=== PATIENT | male | born 1955 | race Caucasian/White ===

== ENCOUNTER 2016-07-22 18:03 | Emergency (ER) | payer MEDICARE ==
[~2016-07-22] VITALS: Ht 170.2 cm; Wt 88.0 kg
[~2016-07-22 18:03] MED LIST: CLON0.2T PO; METH10TA PO
[2016-07-22 18:04] VITALS: BP 168/100; PULSE 85; RESP 15; TEMP 97.7; O2SAT 95
--- NOTE | 2016-07-22 19:27 | PD ---
HPI Chief Complaint: Injury Time Seen by Provider: 19:23 Travel History International Travel<30 days: No Contact w/Intl Traveler<30days: No Traveled to known affect area: No History of Present Illness HPI 61-year-old white male [id number] presents to emergency department with complaints of right shoulder pain after a fall. He states that he was running and tripped and fell landing on his outstretched right hand which then folded under him onto his shoulder. He states that this occurred earlier today. He has had pain in the shoulder and around the scapula. He denies injury to his head. He has chronic back pain. He takes Dilaudid and a muscle relaxer. He denies any nausea vomiting. No double pain. No chest pain or shortness of breath. Pain is moderate. Worse with movement of the arm. Some relief with holding arm against his body. PFSH Past Medical History Narrative Medical Chronic back pain, hypertension Hypertension: Yes Neurologic: Yes Tetanus Vaccination: < 5 Years Past Surgical History Other Surgery: Yes (TNEDON/CORRECTIVE LEGS BILAT - CEREBAL PALSY) Social History Alcohol Use: No Tobacco Use: Yes Substance Use: No Allergies-Medications (Allergen,Severity, Reaction): Coded Allergies: No Known Allergies (Verified , 07/22/16) Reported Meds & Prescriptions Reported Meds & Active Scripts Active Review of Systems Except as stated in HPI: all other systems reviewed are Neg Physical Exam Narrative GENERAL: Well-developed, well-nourished in no apparent distress. Nontoxic appearing. HEAD: Normocephalic, atraumatic. EYES: Pupils equal round and reactive. Extraocular motions intact. No scleral icterus. No injection or drainage. ENT: Nose clear. Throat without erythema, tonsillar hypertrophy or exudate. Uvula midline. Airway patent. NECK: Trachea midline. Supple, nontender, moves head freely. No central bony tenderness or spasm. CARDIOVASCULAR: Regular rate and rhythm without murmurs, gallops, or rubs. RESPIRATORY: Clear to auscultation. Breath sounds equal bilaterally. No wheezes , rales, or rhonchi. GASTROINTESTINAL: Abdomen soft, non-tender, nondistended. No hepato-splenomegaly , or palpable masses. No guarding. EXTREMITIES: No clubbing, cyanosis, or edema. Patient complains of diffuse diffuse pain in the right shoulder as well as the right clavicle. There is no obvious deformity. The skin is intact. He has decreased range of motion due to pain. At times he is able to move his hand and arm readily but will not raise it. He has intact median/ulnar/radial nerves. Left upper extremity is unremarkable. The lower extremities are without localizing bony tenderness. Patient has track herrmann on his hands and forearms BACK: Nontender without deformity. No flank tenderness. NEUROLOGICAL: Awake, alert and oriented x 3 .Cranial nerves grossly intact. Motor and sensory grossly within normal limits. Normal speech. Data Data Last Documented VS Vital Signs Date Time Temp Pulse Resp B/P Pulse Ox O2 Delivery O2 Flow Rate FiO2 07/22/16 18:04 97.7 85 15 168/100 95 Orders Scapula (07/22/16 18:56) Shoulder, Complete (>2vws) (07/22/16 18:56) MDM Medical Decision Making Medical Screen Exam Complete: Yes Emergency Medical Condition: Yes Medical Record Reviewed: Yes Interpretation(s) Right scapula: Negative for fracture. Right shoulder: Negative for fracture. Positive degenerative changes of the acromioclavicular joint. Differential Diagnosis MDM: High Differential diagnoses: Fracture, sprain, strain, dislocation, contusion, neurovascular injury Narrative Course x-RAYS ARE NEGATIVE FOR BONY INJURY. pATIENT'S GIVEN A SLING, tORADOL 60 AND nORFLEX 60 G im. This is fall, right shoulder sprain/contusion Diagnosis Primary Impression: Fall Qualified Code: W19.XXXA - Fall, initial encounter Additional Impression: right shoulder sprain/contusion Patient Instructions: General Instructions Additional Instructions: Rest. Sling. Ice for the next few days. Contact your doctor for pain control. Recheck with your doctor on Sunday. Med/Other Pt SpecificInfo: No Meds Exist/No RX given Disposition: DISCHARGE HOME Condition: Stable Klaus Villalta Jul 22, 2016 19:27
[2016-07-22] MEDS ORDERED: ORPHENADRINE INJ 60 MG/2 ML AMP IM ONE (20:00)
[2016-07-22] MEDS ORDERED: KETOROLAC TROMETHAMINE 60 MG/2 ML (IM) VIAL IM ONE (20:00)
[2016-07-22 20:29] VITALS: BP 161/78
--- NOTE | 2016-07-22 20:48 | RADRPT ---
EXAM DATE/TIME: 07/22/2016 19:34 [facility] COMPARISON: No previous studies available for comparison. INDICATIONS : Patient tripped and landed on right shoulder. Complains of right scapular pain. MEDICAL HISTORY : None. SURGICAL HISTORY : None. ENCOUNTER: Initial ACUITY: 1 day PAIN SCORE: 10/10 LOCATION: Right Scapula. FINDINGS: Two view examination of the right scapula demonstrates no evidence of fracture. The glenohumeral and acromioclavicular joints are maintained. Bony mineralization is normal. CONCLUSION: 1. Mild osteoarthritis of the right acromioclavicular joint. No acute bony abnormality. Klaus Babcock MD on July 22, 2016 at 20:46 Board Certified Radiologist. This report was verified electronically.
--- NOTE | 2016-07-22 20:48 | RADRPT ---
EXAM DATE/TIME: 07/22/2016 19:31 [facility] COMPARISON: No previous studies available for comparison. INDICATIONS : Patient tripped and fell landing on right shoulder. Right shoulder pain. MEDICAL HISTORY : None. SURGICAL HISTORY : None. ENCOUNTER: Initial ACUITY: 1 day PAIN SCORE: 10/10 LOCATION: Right Shoulder FINDINGS: Multiple view examination of the right shoulder demonstrates no evidence of fracture or dislocation. The glenohumeral and acromioclavicular joints are maintained. There is normal range of motion betwe en internal and external rotation. Bony mineralization is normal. CONCLUSION: 1. No acute findings. Mild osteoarthritis of the right acromioclavicular joint. Klaus Babcock MD on July 22, 2016 at 20:45 Board Certified Radiologist. This report was verified electronically.
== END 2016-07-22 20:29 | disposition home or self-care (01) ==
LOC: NEPB 18:03
DX: S43.401A Unspecified sprain of right shoulder joint, initial encounter (principal); W01.0XXA Fall on same level from slipping, tripping and stumbling without subsequent striking against object, initial encounter; Y93.02 Activity, running
CPT/HCPCS: 73010; 73030; 96372; 99283; J1885; J2360